=== PATIENT | female | born 1960 | race Hispanic/Latino ===

== ENCOUNTER → 2024-01-20 | Outpatient (CLI) | payer OTHER | END | disposition home or self-care (01) | LOC: RAH 12:25 | PROVIDERS: ATTEND Family Medicine | DX: I25.2 Old myocardial infarction (principal) | CPT/HCPCS: 93306 ==

== ENCOUNTER 2024-02-21 08:47 | Day surgery (SDC) | payer OTHER ==
[2024-02-17 08:54] VITALS: BP 171/83; PULSE 61; RESP 18
[2024-02-17 09:03] LABS: BASOPHILS # (AUTO) 0.03 K/uL (0.00-0.20); BASOPHILS % (AUTO) 0.3 % (0.0-5.0); EOSINOPHILS # (AUTO) 0.11 K/uL (0.00-0.70); EOSINOPHILS % (AUTO) 1.2 % (0.0-8.0); HEMATOCRIT 42.8 % (36-48); IMMATURE GRANULOCYTE ABSOLUTE 0.02 K/uL (0-1); LYMPHOCYTES # (AUTO) 2.9 K/uL (1.0-4.8); LYMPHOCYTES % (AUTO) 32.2 % (21.0-51.0); MEAN CORPUSCULAR HEMOGLOBIN 29.9 pg (27.0-33.0); MEAN CORPUSCULAR HGB CONC 33.6 g/dL (32.0-36.0); MEAN CORPUSCULAR VOLUME 88.8 fL (79-99); MONOCYTES # (AUTO) 0.5 K/uL (0.1-1.0); MONOCYTES % (AUTO) 5.6 % (3.0-13.0); NEUTROPHILS # (AUTO) 5.5 K/uL (1.8-7.7); NEUTROPHILS % (AUTO) 60.5 % (40.0-77.0); PLATELET COUNT (AUTO) 206 K/uL (130-400); RED BLOOD CELL COUNT(AUTO) 4.82 MIL/uL (4.00-5.50); RED CELL DISTRIBUTION WIDTH 13.2 % (11.0-15.5)
[2024-02-17 09:07] LABS: CREATININE 0.9 mg/dL (0.5-1.0); POTASSIUM 4.3 mmol/L (3.5-5.1)
[2024-02-17 09:15] LABS: INR <= 0.93 (0.85-1.15); PROTHROMBIN TIME 10.1 SEC (9.6-11.6)
[2024-02-17 09:16] LABS: PARTIAL THROMBOPLASTIN TIME 26.7 SEC (26.3-35.5)
[2024-02-21] VITALS (21 sets, daily range): BP systolic 128–193; BP diastolic 61–82; PULSE 61–100; RESP 13–19
[~2024-02-21] VITALS: Ht 152.4 cm; Wt 73.9 kg
[~2024-02-21 08:47] MED LIST: LISI1TAB51 PO
[2024-02-21] MEDS: LACTATED RINGERS 1000ML 1,000 ML IV ONE (10:00)
[2024-02-21] MEDS: CEFAZOLIN SODIUM 2 GM VIAL ONE (10:00)
[2024-02-21] MEDS ORDERED: SUCCINYLCHOLINE CHLORIDE 20 MG/ML 10 ML VIAL ONE (11:06)
[2024-02-21] MEDS ORDERED: LIDOCAINE PF 100MG/5ML (2%) SYRINGE 5ML ONE (11:06)
[2024-02-21] MEDS ORDERED: PROPOFOL 10 MG/ML 20ML VIAL IV ONE (11:06)
[2024-02-21] MEDS ORDERED: FENTANYL CITRATE PF 50 MCG/1 ML 2ML VIAL ONE (11:07)
[2024-02-21] MEDS ORDERED: MIDAZOLAM HCL 1 MG/ML 2ML VIAL ONE (11:07)
[2024-02-21] MEDS ORDERED: ROCURONIUM BROMIDE 10MG/1ML 5ML VL ONE (11:07)
[2024-02-21] MEDS ORDERED: ONDANSETRON 4MG INJ ONE (11:07)
[2024-02-21] MEDS ORDERED: DEXAMETHASONE SOD PHOSPHATE 10MG/ML 1ML VIAL ONE (11:10)
[2024-02-21] MEDS ORDERED: PHENYLEPHRINE HCL 10 MG/ML 1ML VIAL IV ONE (11:22)
[2024-02-21] MEDS ORDERED: DOCU-116 PO (11:41)
[2024-02-21] MEDS ORDERED: TRAM50TA4 PO (11:41)
[2024-02-21] MEDS: ONDANSETRON 4MG INJ ONE (12:46)
[2024-02-21] MEDS: HYDRALAZINE 20MG/ML VIAL ONE (12:47)
[2024-02-21] MEDS: ACETAMINOPHEN 1,000 MG/100 ML VIAL IV ONE (13:31)
[2024-02-21] MEDS: METOCLOPRAMIDE 10 MG/2 ML VIAL ONE (13:31)
[2024-02-21] MEDS: BUPIVACAINE/PF 0.5% 10ML VIAL ONE (13:49)
== END 2024-02-21 14:10 | disposition home or self-care (01) ==
LOC: DAH 08:47
PROVIDERS: ATTEND Surgery
DX: D17.22 Benign lipomatous neoplasm of skin and subcutaneous tissue of left arm (principal); I10 Essential (primary) hypertension; Z80.1 Family history of malignant neoplasm of trachea, bronchus and lung; Z80.3 Family history of malignant neoplasm of breast; Z80.49 Family history of malignant neoplasm of other genital organs; Z79.899 Other long term (current) drug therapy; Z90.49 Acquired absence of other specified parts of digestive tract; Z98.891 History of uterine scar from previous surgery; Z90.710 Acquired absence of both cervix and uterus
CPT/HCPCS: 80048; 85025; 85610; 85730; 36415; 23073; 88304; A6260; A4663; J7120; J3010; J1100; J0330; J0665; J2001; J0360; J2250; J2704; J2405 ×2; J2765; J2371; J0690; A4215; A4223; A4222; A4221; A4600; J3490